=== PATIENT | female | born 1960 | race Caucasian/White ===

== ENCOUNTER → 2023-03-29 08:39 | Outpatient (BNVA) | payer BC, SELFPAY | PROVIDERS: PCP Nurse Practitioner; Visit Provider Nurse Practitioner | DX: I10 Essential (primary) hypertension (principal); Z00.00 Encounter for general adult medical examination without abnormal findings; E66.9 Obesity, unspecified | CPT/HCPCS: 80053; 80061; 83721; 84443 ==